=== PATIENT | male | born 1995 | race Caucasian/White ===

== ENCOUNTER 2018-04-05 21:01 | Emergency (ER) | payer OTHER, SELFPAY ==
[2018-04-05 21:03] VITALS: BP 166/116; PULSE 84; RESP 16; TEMP 36.9; O2SAT 100; BMI 40.1
--- NOTE | 2018-04-05 22:43 | ED.DCSUM_ITS ---
- ER Visit Summary Date of Service: 04/05/18 Chief Complaint: Left knee laceration History of Present Illness: The patient is a 22 M [id number] laceration right hand 2 hours prior to arrival. Moving piece of concrete that had a rebar sticking out when it cut his hand. Tetanus a year ago. No paresthesias. Bleeding controlled. Physical Examination: General: Alert and oriented ?3, no acute distress HEENT: Normocephalic, atraumatic. Moist mucosa membranes Neck: supple, nontender. Cardiovascular: Regular rate and rhythm, no murmurs Respiratory: Normal breath sounds, symmetric, no distress Abdomen: Soft, nontender, nondistended Extremities: Nontender, no edema, pulses intact ?4 Neuro: no focal neurological deficits. Skin: Left hand: Palmar aspect noted 3.5 cm laceration distal to the thenar aspect subcu exposure. No tendon exposure. No bleeding. Sensation intact d istally. Test Results: [] Emergency Department Course and Treatment: Superficial laceration left palm. Verbal consent. Suture total 4, 5-0horizontal sutures. Wound care discussed. Follow-up with his PCP for suture removal. Treatment Plan: [] Disposition: Discharge Impression: Left hand laceration status post repair This note was generated with [employer] dictation software. It may contain incorrect words, spelling, and punctuation that were not noted in review of the chart prior to signing ED Disposition - Plan for ED Patient: Disposition: Home or Assisted Living Chief Complaint: Laceration Diagnosis: Laceration of left hand Instructions: ED Laceration Hand Referrals: Jayashree Tran MD [Primary Care Provider] - 10-14 Days suture removal
[2018-04-05] MEDS: BACITRACIN 15 GM Tube 1 APPLIC TOPICAL (23:53)
[2018-04-05 23:54] VITALS: BP 118/76; PULSE 67; RESP 16; O2SAT 100
== END 2018-04-05 23:55 | disposition home or self-care (01) ==
PROVIDERS: Emergency Provider Emergency Medicine; Family Provider Family Medicine; PCP Family Medicine
DX: S61.412A Laceration without foreign body of left hand, initial encounter (principal); W26.8XXA Contact with other sharp object(s), not elsewhere classified, initial encounter; Y93.89 Activity, other specified
CPT/HCPCS: 12002; 99283